=== PATIENT | female | born 1990 | race American Indian/Alaskan Native ===

== ENCOUNTER 2017-09-18 08:37 | Emergency (ER) | payer OTHER, MEDICAID ==
[2017-09-18 10:12] VITALS: BP 123/70
[2017-09-18] MEDS ORDERED: methylPREDNISolone Sodium Succinate 125 MG/2 ML SDV IM ONE (10:35)
--- NOTE | 2017-09-18 11:40 | EDM.PDOC ---
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 Difficulty walking. Trouble/painful to get out of bed. Cannot straighten up. Sharp pains shoot down right side. Onset: Other (yesterday) Location: Reports: Back Quality: Reports: Ache Severity: Severe Improves with: Reports: None Worsens with: Reports: None Associated Symptoms: Reports: No Other Symptoms Left Lower Back Pain Score (Numeric/FACES): 7 - Related Data Allergies Allergy/AdvReac Type Severity Reaction Status Date / Time No Known Allergies Allergy Verified 03/22/15 10:15 Past Medical History - Past Health History Medical/Surgical History: Denies Medical/Surgical History Social & Family History - Tobacco Use Smoking Status *Q: Never Smoker Years of Tobacco use: 3 Used Tobacco, but Quit: Yes Month Tobacco Last Used: 07/2014 Second Hand Smoke Exposure: No - Caffeine Use Caffeine Use: Reports: Coffee, Energy Drinks, Soda, Tea - Alcohol Use Days Per Week of Alcohol Use: 0 - Recreational Drug Use Recreational Drug Use: No ED ROS GENERAL - Review of Systems Review Of Systems: ROS reveals no pertinent complaints other than HPI. ED EXAM,LOWER BACK PAIN/INJURY - Physical Exam Exam: See Below Exam Limited By: No Limitations General Appearance: Alert, WD/WN, No Apparent Distress Eye Exam: Bilateral Eye: Normal Inspection Ears: Normal External Exam, Normal Canal, Hearing Grossly Normal, Normal TMs Nose: Normal Inspection, Normal Mucosa, No Blood Throat/Mouth: Normal Inspection, Normal Lips, Normal Teeth, Normal Gums, Normal Oropharynx, Normal Voice, No Airway Compromise Head: Atraumatic, Normocephalic Neck: Normal Inspection, Supple, Non-Tender, Full Range of Motion Respiratory/Chest: No Respiratory Distress, Lungs Clear, Normal Breath Sounds, No Accessory Muscle Use, Chest Non-Tender Cardiovascular: Normal Peripheral Pulses, Regular Rate, Rhythm, No Edema, No Gallop, No JVD, No Murmur, No Rub GI/Abdominal: Normal Bowel Sounds, Soft, Non-Tender, No Organomegaly, No Distention, No Abnormal Bruit, No Mass (Female) Exam: Deferred Rectal (Female) Exam: Deferred Back Exam: Muscle Spasm (left) Extremities: Normal Inspection, Normal Range of Motion, Non-Tender, No Pedal Edema, Normal Capillary Refill Neurological: Alert, Normal Mood/Affect, Normal Dorsiflexion, CN II-XII Intact, Normal Plantar Flexion, Normal Gait, Normal Reflexes, No Motor/Sensory Deficits , Oriented x 3 Psychiatric: Normal Affect, Normal Mood Skin Exam: Warm, Dry, Intact, Normal Color, No Rash Lymphatic: No Adenopathy Course - Vital Signs Last Recorded V/S: Last Vital Signs Temp 98.5 F 09/18/17 10:11 Pulse 77 09/18/17 10:11 Resp 16 09/18/17 10:11 BP 123/70 09/18/17 10:11 Pulse Ox 100 09/18/17 10:11 - Orders/Labs/Meds Orders: Active Orders 24 hr Category Date Time Status Lumbar Spine 2 or 3V [CR] Urgent Exams 09/18/17 10:13 Taken Orphenadrine [Norflex] Med 09/18/17 10:45 Active 60 mg IM Q12H Medication Orders Orphenadrine Citrate (Norflex) 60 mg IM Q12H GEE Last Admin: 09/18/17 10:43 Dose: 60 mg Labs: Laboratory Tests 09/18/17 09/18/17 Range/Units 09:12 09:12 Urine Color Yellow (YELLOW) Urine Appearance Clear (CLEAR) Urine pH 6.0 (5.0-9.0) Ur Specific [place] 1.020 (1.005-1.030) Urine Protein Negative (NEGATIVE) Urine Glucose (UA) Negative (NEGATIVE) Urine Ketones Negative (NEGATIVE) Urine Occult Blood Moderate H (NEGATIVE) Urine Nitrite Negative (NEGATIVE) Urine Bilirubin Negative (NEGATIVE) Urine Urobilinogen 0.2 (0.2-1.0) mg/dL Ur Leukocyte Esterase Negative (NEGATIVE) Urine RBC 0-5 /HPF Urine WBC 0-5 (0-5/HPF) /HPF Ur Epithelial Cells Occasional /HPF Urine Bacteria Occasional (0-FEW/HPF) /HPF Urine Mucus Occasional /LPF Urine HCG, Qual Negative Meds: Medications Generic Name Dose Route Start Last Admin Trade Name Steven PRN Reason Stop Dose Admin Orphenadrine Citrate 60 mg 09/18/17 10:45 09/18/17 10:43 Norflex IM 60 mg Q12H GEE Administration Discontinued Medications Generic Name Dose Route Start Last Admin Trade Name Steven PRN Reason Stop Dose Admin Methylprednisolone Sodium Succinate 125 mg 09/18/17 10:35 09/18/17 10:45 Solu-Medrol IM 09/18/17 10:36 125 mg ONETIME ONE Administration - Re-Assessments/Exams Free Text/Narrative Re-Assessment/Exam: 09/18/17 11:39 Lumbar xray: No acute findings See Rad report Departure - Departure Time of Disposition: 11:39 Disposition: Home, Self-Care 01 Condition: Fair Clinical Impression: Muscle strain, Lumbar radiculopathy, acute - Discharge Information Instructions: Back Injury Prevention, [id number], Muscle Strain, [id number] , Back Pain, Adult, [id number] Referrals: Jama Sánchez [Primary Care Provider] - Forms: ED Department Discharge Additional Instructions: Ice/heat as tolerated Rest, but keep moving to prevent stiffness Follow up at your primary care care facility next week if no improvement. RX: Medrol DosePack. RX: Norflex 100mg. - My Orders Last 24 Hours: My Active Orders 09/18/17 10:13 Lumbar Spine 2 or 3V [CR] Urgent 09/18/17 10:45 Orphenadrine [Norflex] 60 mg IM Q12H - Assessment/Plan Last 24 Hours: My Active Orders 09/18/17 10:13 Lumbar Spine 2 or 3V [CR] Urgent 09/18/17 10:45 Orphenadrine [Norflex] 60 mg IM Q12H I have read and agree with the documentation that has been completed regarding this visit. By signing this record, I attest that the documentation was completed in my physical presence and is an accurate record of the encounter.
== END 2017-09-18 12:05 | disposition home or self-care (01) ==
LOC: DL.ED 08:37
DX: S39.012A Strain of muscle, fascia and tendon of lower back, initial encounter (principal); M54.16 Radiculopathy, lumbar region; Z87.891 Personal history of nicotine dependence; Y93.H1 Activity, digging, shoveling and raking; Y99.0 Civilian activity done for income or pay
CPT/HCPCS: 72100; 81001; 81025; 96372; 99284; J2360; J2930

== ENCOUNTER 2020-11-12 14:50 | Emergency (ER) | payer BC, OTHER ==
[2020-11-12 15:10] VITALS: BP 135/80; PULSE 93
--- NOTE | 2020-11-12 15:19 | EDM.PDOC ---
ED HPI GENERAL MEDICAL PROBLEM - General Chief Complaint: Genitourinary Problem Stated Complaint: PROBLEM WITH IUD Time Seen by Provider: 11/12/20 15:18 Source of Information: Reports: Patient, RN, RN Notes Reviewed History Limitations: Reports: No Limitations - History of Present Illness INITIAL COMMENTS - FREE TEXT/NARRATIVE: Pt is a 30 year old female who presents to the ER with c/o her Copper IUD "falling out". Patient states she finished her period yesterday. She states today she has been cramping since this morning. She states the IUD was placed in February,. Patient states she has had 3 pregnancies, 2 live births and 1 miscarriage. She states the cramping feels as it did when she was having a miscarriage. Patient denies any further sx, fever, chills, N/V/D. Onset: Today Bilateral Lower Abdominal Pain Score (Numeric/FACES): 2 - Related Data Allergies Allergy/AdvReac Type Severity Reaction Status Date / Time No Known Allergies Allergy Verified 11/12/20 15:16 Home Meds: Home Meds Escitalopram [Lexapro] 10 mg PO DAILY 11/03/18 [History] Past Medical History - Past Health History Medical/Surgical History: Denies Medical/Surgical History Psychiatric History: Reports: Anxiety Endocrine/Metabolic History: Reports: Other (See Below) Other Endocrine/Metabolic History: "prediabetes" Social & Family History - Family History Family Medical History: No Pertinent Family History - Tobacco Use Tobacco Use Status *Q: Never Tobacco User - Caffeine Use Caffeine Use: Reports: Coffee - Recreational Drug Use Recreational Drug Use: No ED ROS GENERAL - Review of Systems Review Of Systems: Comprehensive ROS is negative, except as noted in HPI. ED EXAM, RENAL/ - Physical Exam Exam: See Below Exam Limited By: No Limitations General Appearance: Alert, WD/WN, No Apparent Distress Eye Exam: Bilateral Eye: EOMI, Normal Inspection Ears: Normal External Exam, Hearing Grossly Normal Nose: Normal Inspection Throat/Mouth: Normal Inspection, Normal Voice, No Airway Compromise Head: Atraumatic, Normocephalic Neck: Normal Inspection, Supple, Non-Tender, Full Range of Motion Respiratory/Chest: No Respiratory Distress, Lungs Clear, Normal Breath Sounds, No Accessory Muscle Use, Chest Non-Tender Cardiovascular: Normal Peripheral Pulses, Regular Rate, Rhythm, No Edema, No Gallop, No JVD, No Murmur, No Rub GI/Abdominal: Normal Bowel Sounds, Soft, Non-Tender, No Organomegaly, No Distention, No Abnormal Bruit, No Mass (Female) Exam: Normal External Exam, Normal Speculum Exam, Normal Bimanual Exam, Cervical Discharge (very small amount of blood, otherwise clear drainage), Other (IUD is visualized coming out of the cervix.) Rectal (Female) Exam: Deferred Back Exam: Normal Inspection, Full Range of Motion, NT Extremities: Normal Inspection, Normal Range of Motion, Non-Tender, Normal Capillary Refill, No Pedal Edema Neurological: Alert, Oriented, CN II-XII Intact, Normal Cognition, Normal Gait, Normal Reflexes, No Motor/Sensory Deficits Psychiatric: Normal Affect, Normal Mood Skin Exam: Warm, Dry, Intact, Normal Color, No Rash Lymphatic: No Adenopathy ED PROCEDURES - Additional/Other Procedure(s) Procedure(s) (Free Text): Copper IUD was exiting the cervix. IUD was removed without difficulty. Course - Vital Signs Last Recorded V/S: Last Vital Signs Temp 97 F 11/12/20 15:09 Pulse 93 11/12/20 15:09 Resp 18 11/12/20 15:09 BP 135/80 11/12/20 15:09 Pulse Ox 100 11/12/20 15:09 - Orders/Labs/Meds Labs: Laboratory Tests 11/12/20 11/12/20 11/12/20 Range/Units 15:35 15:35 15:49 WBC 9.1 (5.0-10.0) 10^3/uL RBC 4.98 (4.2-5.4) 10^6/uL Hgb 14.2 (12.0-16.0) g/dL Hct 42.8 (37.0-47.0) % MCV 85.9 (80-100) fL MCH 28.5 (27.0-34.0) pg MCHC 33.2 (33.0-35.0) g/dL Plt Count 367 (150-450) 10^3/uL Neut % (Auto) 69.3 (42.2-75.2) % Lymph % (Auto) 24.6 (20.5-50.1) % Ada % (Auto) 4.7 (2-8) % Eos % (Auto) 0.8 L (1.0-3.0) % Baso % (Auto) 0.6 (0.0-1.0) % Sodium (136-145) mmol/L Potassium (3.5-5.1) mmol/L Chloride (98-107) mmol/L Carbon Dioxide (21-32) mmol/L Anion Gap (7-13) mEq/L BUN (7-18) mg/dL Creatinine (0.55-1.02) mg/dL Est Cr Clr Drug Dosing mL/min Estimated GFR (MDRD) BUN/Creatinine Ratio (No establ ref range) Glucose (74-99) mg/dL Calcium (8.5-10.1) mg/dL Total Bilirubin (0.2-1.0) mg/dL AST (15-37) U/L ALT (14-59) U/L Alkaline Phosphatase (46-116) U/L Total Protein (6.4-8.2) g/dL Albumin (3.4-5.0) g/dL Globulin Albumin/Globulin Ratio Urine Color Yellow (YELLOW) Urine Appearance Clear (CLEAR) Urine pH 5.5 (5.0-9.0) Ur Specific [place] 1.010 (1.005-1.030) Urine Protein Negative (NEGATIVE) Urine Glucose (UA) Negative (NEGATIVE) Urine Ketones Negative (NEGATIVE) Urine Occult Blood Negative (NEGATIVE) Urine Nitrite Negative (NEGATIVE) Urine Bilirubin Negative (NEGATIVE) Urine Urobilinogen 0.2 (0.2-1.0) mg/dL Ur Leukocyte Esterase Negative (NEGATIVE) Urine HCG, Qual Negative 11/12/20 Range/Units 15:49 WBC (5.0-10.0) 10^3/uL RBC (4.2-5.4) 10^6/uL Hgb (12.0-16.0) g/dL Hct (37.0-47.0) % MCV (80-100) fL MCH (27.0-34.0) pg MCHC (33.0-35.0) g/dL Plt Count (150-450) 10^3/uL Neut % (Auto) (42.2-75.2) % Lymph % (Auto) (20.5-50.1) % Ada % (Auto) (2-8) % Eos % (Auto) (1.0-3.0) % Baso % (Auto) (0.0-1.0) % Sodium 139 (136-145) mmol/L Potassium 3.7 (3.5-5.1) mmol/L Chloride 103 (98-107) mmol/L Carbon Dioxide 27 (21-32) mmol/L Anion Gap 12.7 (7-13) mEq/L BUN 9 (7-18) mg/dL Creatinine 0.91 (0.55-1.02) mg/dL Est Cr Clr Drug Dosing 86.31 mL/min Estimated GFR (MDRD) > 60 BUN/Creatinine Ratio 9.9 (No establ ref range) Glucose 89 (74-99) mg/dL Calcium 8.6 (8.5-10.1) mg/dL Total Bilirubin 0.2 (0.2-1.0) mg/dL AST 19 (15-37) U/L ALT 40 (14-59) U/L Alkaline Phosphatase 95 (46-116) U/L Total Protein 7.8 (6.4-8.2) g/dL Albumin 3.8 (3.4-5.0) g/dL Globulin 4.0 Albumin/Globulin Ratio 0.9 Urine Color (YELLOW) Urine Appearance (CLEAR) Urine pH (5.0-9.0) Ur Specific [place] (1.005-1.030) Urine Protein (NEGATIVE) Urine Glucose (UA) (NEGATIVE) Urine Ketones (NEGATIVE) Urine Occult Blood (NEGATIVE) Urine Nitrite (NEGATIVE) Urine Bilirubin (NEGATIVE) Urine Urobilinogen (0.2-1.0) mg/dL Ur Leukocyte Esterase (NEGATIVE) Urine HCG, Qual Departure - Departure Time of Disposition: 16:30 Disposition: Home, Self-Care 01 Condition: Good Clinical Impression: IUD complication Qualifiers: Device complication type: mechanical Mechanical complication type: displacement Encounter type: initial encounter Qualified Code(s): T83.32XA - Displacement of intrauterine contraceptive device, initial encounter - Discharge Information *PRESCRIPTION DRUG MONITORING PROGRAM REVIEWED*: No *COPY OF PRESCRIPTION DRUG MONITORING REPORT IN PATIENT PETER: No Forms: ED Department Discharge Additional Instructions: Follow up with Leslye Shannon next week Return to the ER with any further problems Sepsis Event Note (ED) - Evaluation Sepsis Screening Result: No Definite Risk - Focused Exam Vital Signs: Vital Signs Temp Pulse Resp BP Pulse Ox 11/12/20 15:09 97 F 93 18 135/80 100
[2020-11-12 16:14] LABS: ANION GAP 12.7 mEq/L (7-13); CHLORIDE,CL 103 mmol/L (98-107); SODIUM,NA 139 mmol/L (136-145)
== END 2020-11-12 16:38 | disposition home or self-care (01) ==
LOC: DL.ED 14:50
DX: T83.32XA Displacement of intrauterine contraceptive device, initial encounter (principal); F41.9 Anxiety disorder, unspecified; Z79.899 Other long term (current) drug therapy
CPT/HCPCS: 36415; 80053; 81003; 81025; 85025; 99283

== ENCOUNTER 2025-04-05 18:16 | Emergency (ER) | payer BC ==
[2025-04-05 18:50] LABS: APPEARANCE,URINE CLEAR (CLEAR); BILIRUBIN,URINE NEGATIVE (NEGATIVE); COLOR,URINE YELLOW (YELLOW); GLUCOSE,URINE NEGATIVE (NEGATIVE); KETONES,URINE TRACE (NEGATIVE); LEUKOCYTE ESTERASE,URINE NEGATIVE (NEGATIVE); NITRITE,URINE NEGATIVE (NEGATIVE); OCCULT BLOOD,URINE NEGATIVE (NEGATIVE); PH,URINE 5.5 (5.0-9.0); PROTEIN,URINE 30 (NEGATIVE); UROBILINOGEN,URINE 0.2 mg/dL (0.2-1.0)
[2025-04-05 18:51] LABS: AMPHETAMINES,URINE NEGATIVE (NEGATIVE); BARBITURATES,URINE NEGATIVE (NEGATIVE); BENZODIAZEPINE,URINE NEGATIVE (NEGATIVE); MDMA (ECSTASY), URINE POSITIVE (NEGATIVE); METHADONE,URINE NEGATIVE (NEGATIVE); METHAMPHETAMINES,URINE NEGATIVE (NEGATIVE); OPIATES,URINE NEGATIVE (NEGATIVE); OXYCODONE,URINE NEGATIVE (NEGATIVE); PHENCYCLIDINE,URINE NEGATIVE (NEGATIVE); TCA,URINE NEGATIVE (NEGATIVE)
[2025-04-05 18:57] LABS: BASOPHILS PERCENT AUTO 0.1 % (0.0-1.0); EOSINOPHILS PERCENT AUTO 1.9 % (1.0-3.0); HEMATOCRIT 41.5 % (37.0-47.0); LYMPHOCYTES PERCENT AUTO 26.9 % (20.5-50.1); MEAN CORPUSCULAR HGB CONC 33.7 g/dL (33.0-35.0); MEAN CORPUSCULAR VOLUME 88.9 fL (80-100); NEUTROPHILS PERCENT AUTO 62.1 % (42.2-75.2); PLATELET COUNT,PLT 314 10^3/uL (150-450); RED BLOOD CELL COUNT 4.67 10^6/uL (4.2-5.4)
[2025-04-05 19:04] LABS: BACTERIA,URINE FEW /HPF (0-FEW/HPF); EPITHELIAL CELLS,URINE FEW /HPF (NOT SEEN); MUCUS,URINE MANY /LPF (NOT SEEN)
[2025-04-05] MEDS: Sodium Chloride 0.9% 10 ML Syringe FLUSH PRN (19:07)
[2025-04-05] MEDS: Sodium Chloride 0.9% 1,000 ML IV ONE ×2 (19:07→19:53)
[2025-04-05 19:16] LABS: A/G RATIO 0.9; ALANINE AMINOTRANSFERASE,ALT 43 U/L (14-59); ALBUMIN 3.6 g/dL (3.4-5.0); ALKALINE PHOSPHATASE 104 U/L (46-116); ANION GAP 11.2 mEq/L (7-13); ASPARTATE AMNIOTRANSFERASE,AST 20 U/L (15-37); BILIRUBIN TOTAL 0.3 mg/dL (0.2-1.0); BLOOD UREA NITROGEN,BUN 8 mg/dL (7-18); BUN/CREATININE RATIO 7.5 (No establ ref range); C-REACTIVE PROTEIN 1.84 ng/dL (<=0.50); CALCIUM 8.9 mg/dL (8.5-10.1); CARBON DIOXIDE,CO2 26 mmol/L (21-32); CHLORIDE,CL 104 mmol/L (98-107); CREATININE 1.06 mg/dL (0.55-1.02); EST CRCL DRUG DOSING (CG) 71.35 mL/min; GLUCOSE RANDOM 85 mg/dL (70-99); POTASSIUM,K 3.2 mmol/L (3.5-5.1); PROTEIN TOTAL,TP 7.4 g/dL (6.4-8.2); SODIUM,NA 138 mmol/L (136-145)
[2025-04-05 19:17] LABS: ESTIMATED GFR 70 mL/min (>=60); ETHANOL BLOOD MEDICAL < 3 mg/dL (0)
[2025-04-05] MEDS: Potassium Chloride 10 MEQ Tab.ER PO ONE (19:38)
[2025-04-05 19:48] VITALS: BP 129/79; PULSE 80
[2025-04-05] MEDS: Meclizine 12.5 MG Tab PO ONE (19:55)
[2025-04-05] MEDS: Take Home: Potassium Chloride 10 MEQ Tab, 10 Tab Pack PO ONE (20:08)
== END 2025-04-05 20:14 | disposition home or self-care (01) ==
LOC: DL.ED 18:16
DX: R42 Dizziness and giddiness (principal); Z79.899 Other long term (current) drug therapy
CPT/HCPCS: 36415; 80053; 80305; 80307; 81001; 82947; 83615; 83735; 85025; 86140; 93005; 96360; 99285; A9270; J7030; 93010; 99284